=== PATIENT | female | born 1955 | race Caucasian/White ===

== ENCOUNTER → 2016-10-16 | Day surgery (SDC) | payer BC ==
[~2016-10-16] MED LIST: AMITRYPTYLINE PO; AMLODIPINE BESYL5 MG PO; ASPIRIN81 M2 PO; COUMADIN PO; COUMADIN2.5 MG PO; CRESTOR40 MG PO; CYMBALTA PO; DIOVAN HCT 80/11 TAB PO; FLEXERIL PO; FLEXERIL10 MG PO; IMDUR-ER30 M3 PO; LASIX20 MG PO; LORAZEPAM1 MG PO; LOVENOX80 MG/0.8 SUBQ; MYSOLINE50 MG PO; NITROSTAT0.4 MG SL; OMEPRAZOLE20 M1 PO; OXYCODON-ACETA1 EAC1 PO; PERCOCET5/325 PO; REPATHA SU140 MG/1 M INJ; ZOLOFT PO
--- NOTE | ~2016-10-16 | OR ---
Unit #: [id number] #: [id number] Patient: JOSR LIZ [id number] [address] [place], [place] [address] [id number] O MR#: [id number] NAME: JOSR LIZ. ROOM: Date of Procedure: 10/16/2016 Admission Date: 10/16/2016 Surgeon: Jose Angel Gutiérrez M.D. : 1955 Attending Physician: Jimmie Gutiérrez Primary Care Physician: Cameron Martínez M.D. SURGERY CENTER OPERATIVE NOTE PROCEDURE PERFORMED Lumbar epidural steroid injection under x-ray guided needle placement with provider administered conscious sedation. PREOPERATIVE DIAGNOSES 1. Acute lumbar radiculitis. 2. Spinal stenosis, lumbosacral spine. 3. Degenerative joint disease, lumbosacral spine. 4. Degenerative disk disease, lumbosacral spine. INDICATIONS FOR PROCEDURE The patient presents today with longstanding history of chronic lumbar radiculitis secondary to her underlying degenerative processes. She is generally fairly well managed medically, but does occasionally experience exacerbations, which to date have not been successfully treated with conservative management alone. She is status post two previous lumbar approach epidural steroid injections occurring about 3 months ago. She states she got some relief and was able to improve her activities of daily living. With that, her total relief was approximately 60% for 6 to 8 weeks; however, over the course of the past 4 to 6 weeks, she has began to develop return of her pain in a crescendo pattern. It is now on bilateral hips and radiating down both legs and interfering with her activities of daily living. After discussing risks and benefits of proceeding today with a lumbar approach epidural steroid injection, the patient agreed this would be the appropriate course of action. DESCRIPTION OF PROCEDURE She was then taken to the operating room, where she was prepped and draped in sterile manner. Standard monitors were applied. She was sedated with 2 mg of IV Versed and lumbar epidural space accessed at L4-L5 level using loss of resistance technique and x-ray guidance. Needle placement was confirmed with injection of 2 mL of Omnipaque. There was good superior and inferior flow to this L4-L5 needle place. Following successful needle placement confirmation, the patient received an injectate containing 4 mL normal saline, and 80 mg of methylprednisolone. She tolerated this procedure well. She was discharged home with followup instructions, which include an offer to return to this clinic as early as 01/22/2017 if we could be of further service to her. Dictated by... Jose Angel Gutiérrez M.D. Unit #: [id number] #: [id number] Patient: JOSR LIZ JRG/modl TD: 10/16/2016 12:02 JOB #: [id number] CC: Kuldip Morrow M.D. SURGERY CENTER OPERATIVE NOTE Page 1 of 1 X Jimmie Gutiérrez MD X PROCEDURE OPERATIVE NOTE
== END | disposition home or self-care (01) ==
LOC: CCSC 09:01
DX: M51.17 Intervertebral disc disorders with radiculopathy, lumbosacral region (principal); M47.27 Other spondylosis with radiculopathy, lumbosacral region; M48.07 Spinal stenosis, lumbosacral region; K21.9 Gastro-esophageal reflux disease without esophagitis; Z95.1 Presence of aortocoronary bypass graft; Z95.2 Presence of prosthetic heart valve; Z90.710 Acquired absence of both cervix and uterus; Z90.49 Acquired absence of other specified parts of digestive tract; Z86.73 Personal history of transient ischemic attack (TIA), and cerebral infarction without residual deficits; Z88.5 Allergy status to narcotic agent
CPT/HCPCS: J1040; J2250

== ENCOUNTER → 2016-11-14 | Outpatient (CLI) | payer BC ==
--- NOTE | ~2016-11-14 | MR113 ---
[facility] A Service of [facility] & [facility] RADIOLOGY TEXT RESULTS PATIENT: JOSR LIZ [facility] : [birth year] UNIT #: [id number] AGE: [address]: Kuldip Morrow MD SEX: F ORDER DR: [id number] [facility] [address] [facility] [place], [place] [address] [id number] O MR#: [id number] Acc #: [id number] NAME: JOSR LIZ : 1955 SEX: F STUDY DATE/TIME: 11/14/2016 15:02 UNIT: [facility] ROOM: STUDY DESCRIPTION: MR Lumbar Wo Contrast Attending Physician: Kuldip Morrow M.D. Referring Physician: Kuldip Morrow M.D. Ordering Physician: Kuldip Morrow M.D. Primary Care Physician: Cameron Martínez M.D. MRI CENTER REPORT This report is preliminary unless electronic signature is present. EXAM Lumbar spine MRI no contrast, 11/14/2016 PROCEDURE Routine unenhanced lumbar spine MRI. COMPARISON Plain radiographs dated 05/27/2016. HISTORY One year history of mid to lower back pain with intermittent numbness and tingling paraesthesias in both legs. FINDINGS There is a chronic-appearing L1 compression fracture with overall about 80% height loss, new since plain radiographs of 05/27/2016. There is a slight T11 upper endplate compression deformity. It is clearly chronic and no other fracture is seen. There is a mild retrolisthesis at L4-5, but alignment is otherwise unremarkable. The distal cord and conus are normal in position and appearance and bone marrow signal is otherwise normal. At T12-L1, the disc is unremarkable but retropulsion of the L1 posterior superior endplate causes mild to moderate canal stenosis. Again the fracture appears chronic at this point though it is new since the plain radiographs of 05/27/2016. At L1-2, disc and endplate change is seen with borderline canal narrowing, and borderline right and no left foraminal narrowing. At L2-3, there is no canal stenosis or foraminal stenosis. [facility] A Service of [facility] & [facility] RADIOLOGY TEXT RESULTS PATIENT: JOSR LIZ LOCATION: [facility] : [birth year] UNIT #: [id number] AGE: [address]: Kuldip Morrow MD SEX: F ORDER DR: At L3-4, there is no canal stenosis, though there is borderline left and no right foraminal stenosis. At L4-5, there is no canal stenosis. There is disc desiccation, and borderline right and borderline, if any, foraminal narrowing. At L5-S1, the canal and foramina are normal. IMPRESSION 1. Transitional segment at the lumbosacral junction termed L5 in this discussion. 2. Using that numbering, there is a compression fracture at L1. This appears chronic though it is actually new since plain radiographs of the lumbar spine dated 05/27/2016. There is also a slight retrolisthesis at 4-5. There is a slight chronic upper endplate compression deformity at T11 but that is chronic appearing as well. Please see above for [id number] details regarding canal and foraminal narrowing. Dictated by... Ezekiel Frias M.D. THIS IS AN ELECTRONICALLY VERIFIED REPORT Ezekiel Frias M.D. at 11/27/2016 10:40 AM ANGEL/kirit TD: 11/20/2016 13:13 JOB #: [id number] MRI CENTER REPORT Page 1 of 1 COPY
== END | disposition home or self-care (01) ==
LOC: CMRI 13:00
DX: M54.16 Radiculopathy, lumbar region (principal); M48.56XA Collapsed vertebra, not elsewhere classified, lumbar region, initial encounter for fracture; M43.16 Spondylolisthesis, lumbar region; G95.20 Unspecified cord compression
CPT/HCPCS: 72148

== ENCOUNTER → 2017-01-22 | Day surgery (SDC) | payer BC ==
--- NOTE | ~2017-01-22 | OR ---
Unit #: [id number] #: [id number] Patient: JOSR LIZ [id number] [address] [place], [place] [address] [id number] O MR#: [id number] NAME: JOSR LIZ ROOM: Date of Procedure: 01/22/2017 Admission Date: 01/22/2017 Surgeon: Jose Angel Gutiérrez M.D. : 1955 Attending Physician: Jose Angel Gutiérrez M.D. Referring Physician: Jose Angel Gutiérrez M.D. Primary Care Physician: Cameron Martínez M.D. SURGERY CENTER OPERATIVE NOTE PROCEDURE PERFORMED Lumbar epidural steroid injection under x-ray guided needle placement with provider administered conscious sedation. PREOPERATIVE DIAGNOSES 1. Acute lumbar radiculitis. 2. Spinal stenosis, lumbosacral spine. 3. Degenerative joint disease, lumbosacral spine. INDICATIONS FOR PROCEDURE The patient presents today with longstanding history of chronic lumbar radicular pain secondary to her underlying degenerative processes. She has most recently undergone acute kyphoplasty treatment for a compression fracture at the L1 vertebra, which seems to have helped a great deal with her L1-L2 radicular signs; however, she continues to have radicular signs more in her spinal column as well as symptoms compatible with an early mild bilateral sacroiliitis at the moment. After discussing risks and benefits of proceeding today with lumbar approach epidural steroid injection, the patient agreed this would be the appropriate course of action. We also discussed to return in 3 weeks for a potential sacroiliac joint injections if her sacroiliitis does not resolve. After discussing risks and benefits of proceeding as such, the patient agreed this would be the appropriate course of action. DESCRIPTION OF PROCEDURE She was then taken to the operating room, where she was prepped and draped in a sterile manner. Standard monitors were applied. She was sedated with 2 mg of IV Versed and lumbar epidural space accessed at the L5-S1 and the L2-L3 interspaces using loss of resistance technique and x-ray guidance. Needle placement was confirmed with injection of 2 mL of Omnipaque at each level. There were good superior and inferior flow at both levels of needle placement. Total x-ray time for this dual needle placement was 9 seconds. Following successful needle placement, the patient received an injectate containing 4 mL of normal saline and 40 mg of methylprednisolone at each level for a total injectate volume of 8 mL of normal saline and 80 mg of methylprednisolone. She tolerated this procedure well. She was discharged home with followup instructions which include return dates of 02/12/2017 for potential sacroiliac joint injections and 04/30/2017 for re-evaluation of her lumbar radicular pain. Dictated by... Jose Angel Gutiérrez M.D. Unit #: [id number] #: [id number] Patient: JOSR LIZ G/modl TD: 01/22/2017 17:52 JOB #: [id number] CC: Kuldip Morrow M.D. SURGERY CENTER OPERATIVE NOTE Page 1 of 1 X Jimmie Gutiérrez MD X PROCEDURE OPERATIVE NOTE
== END | disposition home or self-care (01) ==
LOC: CCSC 08:23
DX: G89.29 Other chronic pain (principal); M47.27 Other spondylosis with radiculopathy, lumbosacral region; M48.07 Spinal stenosis, lumbosacral region; I25.10 Atherosclerotic heart disease of native coronary artery without angina pectoris; K21.9 Gastro-esophageal reflux disease without esophagitis; Z86.73 Personal history of transient ischemic attack (TIA), and cerebral infarction without residual deficits; Z88.5 Allergy status to narcotic agent; Z79.82 Long term (current) use of aspirin; Z79.899 Other long term (current) drug therapy; Z95.1 Presence of aortocoronary bypass graft; Z90.710 Acquired absence of both cervix and uterus; Z90.49 Acquired absence of other specified parts of digestive tract; Z98.890 Other specified postprocedural states
CPT/HCPCS: J1040; J2250